=== PATIENT | female | born 1970 | race Caucasian/White ===

== ENCOUNTER 2025-06-11 10:55 | Outpatient (CLI) | payer OTHER ==
[~2025-06-11 10:55] MED LIST: PROPYLTHIOURACI50 MG
== END 2025-06-11 11:01 | disposition home or self-care (01) ==
LOC: RAD 10:55
DX: M17.11 Unilateral primary osteoarthritis, right knee (principal)

== ENCOUNTER 2025-07-03 08:49 | Outpatient (CLI) | payer OTHER | END 2025-07-03 08:53 | disposition home or self-care (01) | LOC: RAD 08:49 | DX: M48.062 Spinal stenosis, lumbar region with neurogenic claudication (principal); M54.16 Radiculopathy, lumbar region ==